=== PATIENT | male | born 1990 | race Caucasian/White ===

== ENCOUNTER 2019-07-14 19:56 | Emergency (ER) | payer BC ==
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
[2019-07-14] MEDS ORDERED: 0.9 % SODIUM CHLORIDE 1,000 ML IV ONE ×2 (20:08→20:53)
[2019-07-14] MEDS ORDERED: ONDANSETRON HCL/PF 4 MG/ 2ML VIAL IVP ONE (20:08)
[2019-07-14] MEDS ORDERED: MAG HYDROX/ALUMINUM HYD/SIMETH 30 ML, Lidocaine 2% Viscous 15 ML PO ONE ×4 (21:38→22:05)
[2019-07-14] MEDS ORDERED: PANTOPRAZOLE SODIUM 40 MG in SODIUM CHLORIDE 0.9 % (FLUSH) 10 ML IVP ONE (21:40)
[2019-07-14 23:05] VITALS: BP 140/73
[2019-07-15 06:45] LABS: BASOPHILS % 0.4 % (0.0-1.5); NEUTROPHILS # 7.1 # k/uL (1.4-7.7)
[2019-07-15 06:46] LABS: eGFR (Non-African) > 60
== END 2019-07-14 22:35 | disposition home or self-care (01) ==
LOC: ED 19:56
DX: K21.9 Gastro-esophageal reflux disease without esophagitis (principal); R11.2 Nausea with vomiting, unspecified
CPT/HCPCS: 80053; 84484; 85025; 96361; 96374; 96375; 99283; 99284; A9270; J2405; J7030; S1016